=== PATIENT | female | born 1975 | race American Indian/Alaskan Native ===

== ENCOUNTER 2018-05-19 17:34 | Emergency (ER) | payer MEDICAID ==
[2018-05-19 17:49] VITALS: BP 159/92
== END 2018-05-19 22:15 | disposition left against medical advice (07) ==
LOC: ED 17:34
DX: N89.8 Other specified noninflammatory disorders of vagina (principal); Z53.21 Procedure and treatment not carried out due to patient leaving prior to being seen by health care provider

== ENCOUNTER 2019-07-16 18:00 | Emergency (ER) | payer SELFPAY ==
--- NOTE | 2019-07-16 19:18 | Event Note ---
ED Screening Note Date of service: 07/16/19 Time: 19:15 ED Screening Note: Patient reports vaginal spotting and lower abdominal pain x 2 days. Denies any urinary symptoms. no nausea or vomiting. no back pain. This initial assessment/diagnostic orders/clinical plan/treatment(s) is/are subject to change based on patients health status, clinical progression and re- assessment by fellow clinical providers in the ED. Further treatment and workup at subsequent clinical providers discretion. Patient/guardian urged not to elope from the ED as their condition may be serious if not clinically assessed and managed. Initial orders include: labs
[2019-07-16 19:52] LABS: Hematocrit 25.3 % (30.3-42.9); Hemoglobin 7.5 gm/dl (10.1-14.3); Mean Corpuscular HGB Conc 30 % (30-34); Platelet Count 467 K/mm3 (140-440); Red Blood Count 4.11 M/mm3 (3.65-5.03)
[2019-07-16 19:53] LABS: Basophils % (Auto) 0.6 % (0.0-1.8); Lymphocytes # (Auto) 1.5 K/mm3 (1.2-5.4); Lymphocytes % (Auto) 29.1 % (13.4-35.0); Mean Corpuscular Volume 62 fl (79-97); Monocytes % (Auto) 4.3 % (0.0-7.3); Red Cell Distribution Width 21.3 % (13.2-15.2)
[2019-07-16 19:54] LABS: Eosinophils # (Auto) 0.1 K/mm3 (0.0-0.4); Eosinophils % (Auto) 2.3 % (0.0-4.3); Monocytes # (Auto) 0.2 K/mm3 (0.0-0.8)
[2019-07-16 20:00] LABS: Alanine Aminotransferase 10 units/L (7-56); Albumin 4.3 g/dL (3.9-5); BUN/Creatinine Ratio 10; Blood Urea Nitrogen 10 mg/dL (7-17); Calcium 8.9 mg/dL (8.4-10.2); Hemolysis Index 0
[2019-07-16 20:01] LABS: Bilirubin,Direct < 0.2 mg/dL (0-0.2)
[2019-07-16 20:42] LABS: Bilirubin,Urine NEG (Negative); Blood,Urine LG (Negative); Color,Urine Amber (Yellow); Mucus,Urine 1+ /HPF
[2019-07-16 20:47] LABS: RBC,Urine > 182.0 /HPF (0.0-6.0)
[2019-07-16] MEDS ORDERED: cephALEXin 500 MG CAP PO ONE (21:27)
[2019-07-16] MEDS ORDERED: ACETAMINOPHEN 500 MG TAB PO ONE (21:27)
[2019-07-16] MEDS ORDERED: ONDANSETRON 4 MG ODT TAB PO ONE (21:27)
--- NOTE | 2019-07-16 21:56 | Emergency Department Report ---
ED Abdominal Pain HPI - General Chief Complaint: Abdominal Pain Stated Complaint: LOWER ABD PAIN Time Seen by Provider: 07/16/19 19:14 Source: patient Mode of arrival: Ambulatory Limitations: No Limitations - History of Present Illness MD Complaint: abdominal pain -: Sudden, days(s) (2) Location: suprapubic Radiation: none Migration to: suprapubic Severity: mild Severity scale (0 -10): 3 Quality: cramping, aching Consistency: intermittent Improves With: nothing Worsens With: nothing Associated Symptoms: denies other symptoms. denies: nausea, vomiting, diarrhea, fever, chills, constipation, dysuria, hematemesis, hematochezia, melena, hematuria, anorexia, syncope, other - Related Data LMP Date: 07/12/19 Previous Rx's Medication Instructions Recorded Last Taken Type Fluticasone Propionate [Flonase] 16 gm NS DAILY #1 spray.susp 09/16/13 Unknown Rx Ferrous Sulfate [Ferrous Sulfate 324 mg PO DAILY #60 tablet.dr 07/16/19 Unknown Rx 324 MG] Ibuprofen [Motrin] 800 mg PO Q8HR PRN #20 tablet 07/16/19 Unknown Rx Ondansetron [Zofran Odt] 4 mg PO Q6HR PRN #15 tab.rapdis 07/16/19 Unknown Rx cephALEXin [Keflex] 500 mg PO Q8HR #30 cap 07/16/19 Unknown Rx raNITIdine HCl [Zantac] 150 mg PO Q12H #30 tablet 07/16/19 Unknown Rx Allergies Allergy/AdvReac Type Severity Reaction Status Date / Time No Known Allergies Allergy Unverified 09/16/13 11:13 ED Review of Systems ROS: Stated complaint: LOWER ABD PAIN Other details as noted in HPI Constitutional: denies: chills, fever Eyes: denies: eye pain, eye discharge, vision change ENT: denies: ear pain, throat pain Respiratory: denies: cough, shortness of breath, wheezing Cardiovascular: denies: chest pain, palpitations Endocrine: no symptoms reported Gastrointestinal: abdominal pain. denies: nausea, diarrhea Genitourinary: denies: urgency, dysuria, discharge Musculoskeletal: denies: back pain, joint swelling, arthralgia Skin: denies: rash, lesions Neurological: denies: headache, weakness, paresthesias Psychiatric: denies: anxiety, depression Hematological/Lymphatic: denies: easy bleeding, easy bruising ED Past Medical Hx - Past Medical History Previous Medical History?: No Additional medical history: htn during , heart murmur during - Surgical History Past Surgical History?: Yes Additional Surgical History: right knee surgery, x 2, colposcopy, Tubal Ligation - Social History Smoking Status: Never Smoker Substance Use Type: None - Medications Home Medications: Home Medications Medication Instructions Recorded Confirmed Last Taken Type Fluticasone Propionate [Flonase] 16 gm NS DAILY #1 spray.susp 09/16/13 Unknown Rx Ferrous Sulfate [Ferrous Sulfate 324 mg PO DAILY #60 tablet.dr 07/16/19 Unknown Rx 324 MG] Ibuprofen [Motrin] 800 mg PO Q8HR PRN #20 tablet 07/16/19 Unknown Rx Ondansetron [Zofran Odt] 4 mg PO Q6HR PRN #15 tab.rapdis 07/16/19 Unknown Rx cephALEXin [Keflex] 500 mg PO Q8HR #30 cap 07/16/19 Unknown Rx raNITIdine HCl [Zantac] 150 mg PO Q12H #30 tablet 07/16/19 Unknown Rx ED Physical Exam - General Limitations: No Limitations General appearance: alert, in no apparent distress - Head Head exam: Present: atraumatic, normocephalic, normal inspection - Eye Eye exam: Present: normal appearance, PERRL, EOMI Pupils: Present: normal accommodation - ENT ENT exam: Present: normal exam, normal orophraynx, mucous membranes moist, TM's normal bilaterally, normal external ear exam - Neck Neck exam: Present: normal inspection, full ROM - Respiratory Respiratory exam: Present: normal lung sounds bilaterally. Absent: respiratory distress, wheezes, chest wall tenderness, decreased breath sounds - Cardiovascular Cardiovascular Exam: Present: regular rate, normal rhythm, normal heart sounds. Absent: systolic murmur, diastolic murmur, rubs, gallop - GI/Abdominal GI/Abdominal exam: Present: soft, normal bowel sounds. Absent: tenderness, guarding, hyperactive bowel sounds, organomegaly, mass - Extremities Exam Extremities exam: Present: normal inspection, full ROM, normal capillary refill - Back Exam Back exam: Present: normal inspection - Neurological Exam Neurological exam: Present: alert, oriented X3, CN II-XII intact, normal gait, reflexes normal - Psychiatric Psychiatric exam: Present: normal affect, normal mood - Skin Skin exam: Present: warm, dry, intact, normal color. Absent: rash ED Course Vital Signs 07/16/19 19:14 Temperature 98 F Pulse Rate 92 H Respiratory 16 Rate Blood Pressure 153/74 O2 Sat by Pulse 98 Oximetry - Reevaluation(s) Reevaluation #1: 07/16/19 21:53 This is a 43-year-old female who presented to the ED with acute intermittent suprapubic pain for 2 days. Patient is a history of chronic uterine fibroids with prolonged and heavy menses. In the ED, patient is alert and oriented 3 and is not in distress. Lab test results were reviewed and shows hemoglobin of 7.5, hematocrit 25.3 and MCV 62. Urinalysis shows acute urinary tract infecti on. Patient states that she has prescriptions for iron tablets but does not take them as she showed. The rest of the lab test results are unremarkable and nonactionable. Patient was treated for pain in the ED and discharged home on pain medications and antibiotics for UTI. Patient was advised to take her medications for urinary tract infection and also her iron tablets at home. Patient was advised to follow-up with her primary care physician in 710 days for reevaluation. ED Medical Decision Making - Lab Data Result diagrams: 07/16/19 19:26 07/16/19 19:26 - Medical Decision Making This is a 43-year-old female who presented to the ED with acute intermittent suprapubic pain for 2 days. Patient is a history of chronic uterine fibroids with prolonged and heavy menses. In the ED, patient is alert and oriented 3 and is not in distress. Lab test results were reviewed and shows hemoglobin of 7.5, hematocrit 25.3 and MCV 62. Urinalysis shows acute urinary tract infection. Patient states that she has prescriptions for iron tablets but does not take them as she showed. The rest of the lab test results are unremarkable and nonactionable. Patient was treated for pain in the ED and discharged home on pain medications and antibiotics for UTI. Patient was advised to take her medications for urinary tract infection and also her iron tablets at home. Patient was advised to follow-up with her primary care physician in 710 days for reevaluation. - Differential Diagnosis Abdominal pain, UTI; Viral gastroenteritis; Uterine fibroids Critical care attestation.: If time is entered above; I have spent that time in minutes in the direct care of this critically ill patient, excluding procedure time. ED Disposition Clinical Impression: Acute urinary tract infection, Chronic iron deficiency anemia Abdominal pain Qualifiers: Abdominal location: lower abdomen, unspecified Qualified Code(s): R10.30 - Lower abdominal pain, unspecified Disposition: TO HOME OR SELFCARE Is pt being admited?: No Does the pt Need Aspirin: No Condition: Stable Instructions: Abdominal Pain (ED), Urinary Tract Infection in Women (ED), Iron Deficiency Anemia (ED) Additional Instructions: Take medications with food, drink plenty of fluids and follow-up with your primary care physician in 5-7 days for reevaluation. Return to the ED immediately if symptoms get worse. Prescriptions: Ferrous Sulfate [Ferrous Sulfate 324 MG] 324 mg PO DAILY #60 tablet. cephALEXin [Keflex] 500 mg PO Q8HR #30 cap Ibuprofen [Motrin] 800 mg PO Q8HR PRN #20 tablet PRN Reason: Pain , Severe (7-10) raNITIdine HCl [Zantac] 150 mg PO Q12H #30 tablet Ondansetron [Zofran Odt] 4 mg PO Q6HR PRN #15 tab.rapdis PRN Reason: Nausea Referrals: LUIS LUIS MD [Primary Care Provider] - 3-5 Days Time of Disposition: 21:57 Print Language: MAURITANIAN
[2019-07-16 23:01] VITALS: BP 142/72
== END 2019-07-16 23:00 | disposition home or self-care (01) ==
LOC: ED 18:00
DX: N39.0 Urinary tract infection, site not specified (principal); D50.9 Iron deficiency anemia, unspecified; Z98.890 Other specified postprocedural states; Z79.899 Other long term (current) drug therapy
CPT/HCPCS: 36415; 80048; 80076; 81001; 83690; 85025; 87086; 99283; Q0162